=== PATIENT | female | born 1935 | race Two or more races ===

== ENCOUNTER 2024-12-06 13:18 | Emergency (ER) | payer OTHER ==
[~2024-12-06] VITALS: Ht 149.9 cm; Wt 55.3 kg
[2024-12-06 17:22] LABS: HEMATOCRIT 35.9 % (36.0-45.00); HEMOGLOBIN 12.1 g/dL (12.0-15.00); MEAN CELL VOLUME 80.4 fL (80.00-100.00); MEAN CORPUSCULAR HEMOGLOBIN 27.1 pg (27.00-32.0); MEAN CORPUSCULAR HGB CONC 33.7 g/dl (32.0-36.0); PLATELET COUNT 502 K/uL (150-450); RED BLOOD COUNT 4.47 M/uL (4.00-6.00); RED CELL DISTRIBUTION WIDTH 14.6 % (11.5-14.5)
[2024-12-06 18:05] LABS: PH,URINE 6.5 (5.0-8.0); URINE APPEARANCE Clear; URINE BILIRRUBIN Negative (NEGATIVE); URINE BLOOD Negative; URINE COLOR Yellow; URINE GLUCOSE Negative (NEGATIVE); URINE KETONE Negative (NEGATIVE); URINE LEUKOCYTE Trace; URINE NITRATE Negative; URINE PROTEIN Negative (NEGATIVE); URINE UROBILINOGEN 0.2 E.U./dl
[2024-12-06 18:09] LABS: URINE BACTERIA 52.6 uL (0.0-1933); URINE EPITHELIAL CELLS 6.3 uL (0.0-38.8); URINE RBC 3.3 uL (0.0-20.8); URINE WBC 3.9 uL (0.0-23.2)
[2024-12-06 18:18] LABS: URINE CAST 0.14 uL (0.0-1.40)
[2024-12-06 18:31] LABS: ALBUMIN 3.3 gm/dL (3.4-5.0); BILIRUBIN TOTAL 0.36 mg/dL (0.3-1.2); CALCIUM 9.8 mg/dL (8.5-10.1); CREATININE SERUM 0.58 mg/dL (0.55-1.02); GFR 98.11; GLOBULINA 4.4 G/DL (2.4-3.5); TOTAL PROTEIN 7.7 gm/dL (6.4-8.2)
[2024-12-06 18:56] LABS: POTASSIUM 4.15 mEq/L (3.5-5.1)
[2024-12-06] MEDS ORDERED: KETOROLAC TROMETHAMINE 30 MG VIAL IM ONE (19:15)
[2024-12-06] MEDS ORDERED: KETOROLAC TROMETHAMINE 30 MG VIAL ONE (19:21)
== END 2024-12-06 19:25 | disposition home or self-care (01) ==
LOC: ER 13:19
PROVIDERS: General Practice
DX: R53.81 Other malaise (principal); M54.9 Dorsalgia, unspecified; I10 Essential (primary) hypertension
CPT/HCPCS: 36415; 72100; 96372; 99283; J1885